=== PATIENT | female | born 1990 | race African-American/Black ===

== ENCOUNTER 2023-09-04 21:55 | Emergency (ER) | payer OTHER ==
[~2023-09-04] VITALS: Ht 160 cm; Wt 74.0 kg
[2023-09-05 04:27] VITALS: BP 106/65; PULSE 72; RESP 16; TEMP 98.6; O2SAT 100
[2023-09-05] MEDS: KETOROLAC TROMETH 60MG/2ML VIAL IM ONE (05:15)
[2023-09-05 05:26] LABS: Urine Amorphous Crystal FEW /hpf (None Seen); Urine Bacteria MOD /hpf (None Seen); Urine Blood Negative /uL (Negative); Urine Clarity Turbid (Clear); Urine Color Light-Yellow (Yellow); Urine Mucus FEW (None Seen); Urine Protein, UAD TRACE (Negative); Urine Specific Gravity 1.032 (1.001-1.035); Urine Urobilinogen 2 mg/dL (Negative); Urine WBC 5 /hpf (0 - 5); Urine pH 6.5 (5.0-9.0)
[2023-09-05] MEDS ORDERED: NITR-87 PO (05:32)
[2023-09-05] MEDS ORDERED: IBUP-1456 PO (05:33)
[2023-09-05] MEDS ORDERED: PROM25TA10 PO (05:47)
[2023-09-05] MEDS ORDERED: PROM5SOL PO (06:39)
== END 2023-09-05 06:42 | disposition home or self-care (01) ==
LOC: ER 21:55
DX: N39.0 Urinary tract infection, site not specified (principal); G44.209 Tension-type headache, unspecified, not intractable; J45.909 Unspecified asthma, uncomplicated; G43.909 Migraine, unspecified, not intractable, without status migrainosus; Z79.1 Long term (current) use of non-steroidal anti-inflammatories (NSAID); Z79.899 Other long term (current) drug therapy
CPT/HCPCS: 81001; 81025; 96372; 99283; J1885

== ENCOUNTER 2024-01-30 09:51 | Emergency (ER) | payer SELFPAY ==
[~2024-01-30] VITALS: Ht 160 cm; Wt 65.2 kg
[~2024-01-30 09:51] MED LIST: IBUP-1456 PO; NITR-87 PO; PROM5SOL PO
[2024-01-30 10:10] VITALS: BP 121/58; PULSE 73; RESP 18; TEMP 99.1; O2SAT 99
[2024-01-30 10:40] LABS: Urine Bacteria None Seen /hpf (None Seen)
[2024-01-30] MEDS: MAALOX PLUS or MAALOX 30 ML PO ONE (10:50)
[2024-01-30] MEDS: ONDANSETRON ODT 4 MG TAB PO ONE (10:50)
[2024-01-30] MEDS: LIDOCAINE VISCOUS 2% 15ML UD PO ONE (10:50)
[2024-01-30] MEDS: DONNATAL 5ml ORAL Elix (BELLADONNA ALK-PHENOBARB) PO ONE (10:51)
[2024-01-30 11:00] LABS: Urine Blood TRACE /uL (Negative); Urine Clarity Turbid (Clear); Urine Color Yellow (Yellow); Urine Hyaline Cast FEW /lpf (0 - 2); Urine Mucus MODERATE (None Seen); Urine Protein, UAD 1+ (Negative); Urine Specific Gravity 1.035 (1.001-1.035); Urine Urobilinogen 2 mg/dL (Negative); Urine WBC 3 /hpf (0 - 5)
[2024-01-30 11:12] LABS: Basophils # (auto) 0 10 ^3/uL (0-0.2); Basophils % (auto) 1.4 % (0.0-2.0); Eosinophils # (auto) 0.1 10 ^3/uL (0-0.8); Eosinophils % (auto) 2.2 % (0.0-7.0); Hematocrit 37.9 % (36.0-46.0); Hemoglobin 12.8 g/dL (12.2-16.2); Lymphocytes # (auto) 1.2 10 ^3/uL (0.4-5.4); Lymphocytes % (auto) 41.5 % (10.0-50.0); Mean Corpuscular Hgb Conc. 33.7 g/dL (32.0-36.0); Monocytes # (auto) 0.5 10 ^3/uL (0-1.3); Monocytes % (auto) 16.1 % (0.0-12.0); Neutrophils # (auto) 1.1 10 ^3/uL (1.6-8.6); Neutrophils % (auto) 38.8 % (37.0-80.0); Platelet Count (auto) 268 10^3/uL (140-450); Red Blood Cells 4.26 10^6/uL (4.0-5.20); Red Cell Distribution Width 12.5 % (11.8-14.3); White Blood Cell 2.9 10^3/uL (4.4-10.8)
[2024-01-30 11:17] LABS: Alanine Aminotransferase 18 U/L (7-40); Albumin 4.7 g/dL (3.2-4.8); Alkaline Phosphatase 50 U/L (46-116); Anion Gap 8 (5-15); Aspartate Aminotransferase 16 U/L (13-40); BUN/Creatinine Ratio 9.1 (10.0-20.0); Blood Urea Nitrogen 7 mg/dL (9-23); Calcium 9.9 mg/dL (8.7-10.4); Carbon Dioxide 27 mmol/L (20-31); Chloride 105 mmol/L (98-107); Glucose 84 mg/dL (74-106); Lipase 34 U/L (12-53); Potassium 3.3 mmol/L (3.5-5.1); Sodium 140 mmol/L (136-145)
[2024-01-30 11:18] LABS: Bilirubin, Total 0.7 mg/dL (0.2-1.0); Total Protein 7.7 g/dL (5.7-8.2)
[2024-01-30] MEDS ORDERED: ONDA-155 PO (11:57)
== END 2024-01-30 12:01 | disposition home or self-care (01) ==
LOC: ER 09:51
DX: R11.2 Nausea with vomiting, unspecified (principal); J45.909 Unspecified asthma, uncomplicated; F12.90 Cannabis use, unspecified, uncomplicated; Z79.899 Other long term (current) drug therapy
CPT/HCPCS: 36415; 74018; 80053; 81001; 83690; 85025; 99284; Q0162